=== PATIENT | female | born 1955 | race African-American/Black ===

== ENCOUNTER 2017-06-22 01:48 | Inpatient (IN) | payer MEDICAID, SELFPAY ==
[2017-06-22] VITALS (27 sets, daily range): BP systolic 117–180; BP diastolic 67–100; PULSE 55–118; RESP 16–24; TEMP 36.5–37.7; O2SAT 91–99; BMI 30.7; BMI 27.1
--- NOTE | 2017-06-22 | IR_ITS ---
CARDIAC CATHETERIZATION DATE OF CATHETERIZATION:06/22/2017 12:22 PM PROCEDURES: 1. Left heart catheterization 2. Left ventriculogram 3. Selective coronary angiographic INDICATION FOR TEST: 1. Admission to the hospital for acute coronary syndrome 2. Risk factors for coronary artery disease Informed consent was obtained prior to the procedure. COMPLICATIONS: None ESTIMATED BLOOD LOSS: Less than 10 ml. TECHNIQUE: One percent lidocaine used to anesthetize the right anterior aspect of the wrist. The right radial artery was accessed via the Seldinger technique. A 6 Urdu sheath was placed in the right radial artery. 2.5 mg of verapamil, 800 mcg of nitroglycerin and 5000 U Heparin were given through the arterial sheath. The trap catheter was also used to perform left heart catheterization and left ventriculography. At the end of the procedure the patient was transferred to the post-op holding area in stable condition for arterial sheath removal. ANGIOGRAPHIC RESULTS: 1. The left main artery has a mid vessel 10% stenosis 2. The left anterior descending artery has an ostial 20-30% stenosis and has a mid vessel 30-40% stenosis. The first diagonal artery is a medium-size vessel and has proximal 50% stenoses 3. The circumflex artery gives rise to a ramus intermedius which has proximal 20% mid vessel 20% stenoses this is a large vessel. The remaining circumflex artery has proximal 20% stenoses with a 50-60% stenosis and a terminal 2 mm obtuse marginal artery 4. The right coronary artery is nondominant highly tortuous and has proximal 30% stenoses and mid vessel 40 and 50% stenoses along very tortuous corkscrew areas 5. The TRAN ventriculogram reveals slightly hyperdynamic at 70 mmHg 6. The left ventricular end-diastolic pressure moderate to severely elevated at 30 mmHg IMPRESSION: 1. Moderate nonflow limiting coronary artery disease as described above with hypertensive tortuous vessels accompanied by hyperdynamic ejection fraction and moderate to severely elevated LVEDP all consistent with moderate to severe hypertensive heart disease PLAN: 1. Medical management 2. Risk factor modification 3. Verapamil or diltiazem combined with a beta rima as well as diuretics in order to decrease EDP 4. Patient's symptoms are stemming almost entirely from hypertensive heart disease
--- NOTE | 2017-06-22 02:13 | HMH.EDSEIZ ---
ED Disposition Clinical Impression: Elevated troponin Epileptic seizure Qualifiers: Epilepsy type: unspecified Intractability: not intractable Status epilepticus: without status epilepticus Qualified Code(s): G40.909 - Epilepsy, unspecified, not intractable, without status epilepticus CAP (community acquired pneumonia) Qualifiers: Laterality: unspecified laterality Qualified Code(s): J18.9 - Pneumonia, unspecified organism Disposition: Admitted as Observation Condition on Discharge: Good Referrals: Magdaleno Cloud [Primary Care Provider] - - Critical Care Critical Care Time: No Attestation: On , the high probability of a clinically significant, sudden or life threatening deterioration of the following system(s) required my full and direct attention, intervention and personal management. The time I documented below is in addition to time spent performing reported procedures but includes the following listed in this critical care notation. Medical Decision Making Vital Signs: 06/22/17 01:50 06/22/17 03:30 06/22/17 03:32 Temperature 97.7 F Temperature Source Rectal Pulse Rate [Right Brachial] 118 H 91 H Respiratory Rate 24 16 Blood Pressure [Right Arm] 164/82 180/100 Blood Pressure Mean [Right Arm] 109 126 Blood Pressure Source [Right Arm] Automatic Cuff Automatic Cuff Blood Pressure Position [Right Arm] Supine Supine 02 Sat by Pulse Oximetry 92 L 97 98 Oxygen Delivery Method Non-Rebreather Nasal Cannula Nasal Cannula Oxygen Flow Rate (LPM) 4 06/22/17 03:51 06/22/17 04:16 06/22/17 04:30 Temperature Temperature Source Pulse Rate [Right Brachial] 91 H 92 H 98 H Respiratory Rate 20 16 16 Blood Pressure [Right Arm] 179/97 166/100 156/85 Blood Pressure Mean [Right Arm] 124 122 108 Blood Pressure Source [Right Arm] Automatic Cuff Automatic Cuff Automatic Cuff Blood Pressure Position [Right Arm] Supine Supine Supine 02 Sat by Pulse Oximetry 99 96 97 Oxygen Delivery Method Non-Rebreather Nasal Cannula Room Air Oxygen Flow Rate (LPM) 4 06/22/17 04:36 Temperature Temperature Source Pulse Rate [Right Brachial] 93 H Respiratory Rate 18 Blood Pressure [Right Arm] 156/85 Blood Pressure Mean [Right Arm] 108 Blood Pressure Source [Right Arm] Automatic Cuff Blood Pressure Position [Right Arm] Supine 02 Sat by Pulse Oximetry 97 Oxygen Delivery Method Nasal Cannula Oxygen Flow Rate (LPM) 3 - Lab Data Lab Results 06/22/17 02:19: Urine Opiates Screen Negative, Ur Barbituates Screen Negative, Ur Phencyclidine Scrn Negative, Ur Amphetamines Screen Negative, U Methamphetamines Scrn Negative, U Benzodiazepines Scrn Positive H, Urine Cocaine Screen Negative, U Marijuana (THC) Screen Negative 06/22/17 02:19: Urine Color Yellow, Urine Appearance Clear, Urine pH 6.0, Ur Specific [place] 1.025, Urine Protein 1+, Urine Glucose (UA) 2+, Urine Ketones Negative, Urine Blood Trace, Urine Nitrate Negative, Urine Bilirubin Negative, Urine Urobilinogen 0.2, Ur Leukocyte Esterase Negative, Urine WBC 3-5, Urine Bacteria Trace 06/22/17 03:00: WBC 8.1, RBC 4.96, Hgb 13.1, Hct 42.4, MCV 85.5, MCH 26.4 L, MCHC 30.9 L, RDW 14.0, Plt Count 127 L, MPV 8.4, Neut % (Auto) 75.5, Lymph % (Auto) 14.8, [place] % (Auto) 8.1, Eos % (Auto) 1.4, Baso % (Auto) 0.2, Neut # (Auto) 6.1, Lymph # (Auto) 1.2, [place] # (Auto) 0.7, Eos # (Auto) 0.1, Baso # (Auto) 0.0 06/22/17 03:00: Sodium 142, Potassium 3.7, Chloride 104, Carbon Dioxide 30, Anion Gap 11.7, BUN 18, Creatinine 1.08 H, Estimated Creat Clear 72, Estimated GFR 51 L, Est GFR ( Amer) 62, Glucose 152 H, Calcium 8.5, Total Bilirubin 0.1 L, AST 18, ALT 24, Alkaline Phosphatase 114, Total Creatine Kinase 136, CK-MB (CK-2) 1.8, CK-MB (CK-2) Rel Index 1.3, Troponin I 0.15 H, Total Protein 7.2, Albumin 3.6, Globulin 3.6 H, Albumin/Globulin Ratio 1.0 L, Plasma/Serum Alcohol 0 06/22/17 04:42: Troponin I 0.50 H Result diagrams: 06/22/17 03:00 06/22/17 03:00 Orders (Tests/Meds): ED
--- NOTE | 2017-06-22 02:17 | CT_ITS ---
CT head/brain wo con HISTORY: Seizure, prior surgery ITS.REASON: sz ORDERING PHYSICIAN: Bharat Perez MD PATIENT AGE: 64 years COMPARISON: None TECHNIQUE: Axial images obtained without contrast. Brain and bone windows reviewed. FINDINGS: No midline shift, mass effect, intracranial hemorrhage, hydrocephalus, or extra-axial fluid collection is evident. 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 Encephalomalacia changes are present in the left frontal lobe and right occipital lobe as well as the left aspect of the cerebellum. There is mild periventricular ischemic gliotic change No mastoid effusion. No sinus air-fluid levels.. IMPRESSION: 1. No acute intracranial findings. 2. Postsurgical changes with areas of encephalomalacia with ischemic gliotic change.
--- NOTE | 2017-06-22 02:18 | XR_ITS ---
XR chest AP HISTORY: ITS.REASON: cough ORDERING PHYSICIAN: Bharat Perez MD PATIENT AGE: 64 years COMPARISON: None available FINDINGS: Study is limited technically due to underpenetration. There is increased density in both upper lobes consistent with pneumonia, the appearance appears to be may be accentuated by the technique. Recommend repeat exam when patient can tolerate. There is normal heart size. IMPRESSION: Limited exam with bilateral pneumonia
--- NOTE | 2017-06-22 02:19 | ED_ITS ---
ED Disposition Clinical Impression: Elevated troponin Epileptic seizure Qualifiers: Epilepsy type: unspecified Intractability: not intractable Status epilepticus: without status epilepticus Qualified Code(s): G40.909 - Epilepsy, unspecified, not intractable, without status epilepticus CAP (community acquired pneumonia) Qualifiers: Laterality: unspecified laterality Qualified Code(s): J18.9 - Pneumonia, unspecified organism Disposition: Admitted as Observation Condition on Discharge: Good Referrals: Magdaleno Cloud [Primary Care Provider] - - Critical Care Critical Care Time: No Attestation: On , the high probability of a clinically significant, sudden or life threatening deterioration of the following system(s) required my full and direct attention, intervention and personal management. The time I documented below is in addition to time spent performing reported procedures but includes the following listed in this critical care notation. Medical Decision Making Vital Signs: 06/22/17 01:50 06/22/17 03:30 06/22/17 03:32 Temperature 97.7 F Temperature Source Rectal Pulse Rate [Right Brachial] 118 H 91 H Respiratory Rate 24 16 Blood Pressure [Right Arm] 164/82 180/100 Blood Pressure Mean [Right Arm] 109 126 Blood Pressure Source [Right Arm] Automatic Cuff Automatic Cuff Blood Pressure Position [Right Arm] Supine Supine 02 Sat by Pulse Oximetry 92 L 97 98 Oxygen Delivery Method Non-Rebreather Nasal Cannula Nasal Cannula Oxygen Flow Rate (LPM) 4 06/22/17 03:51 06/22/17 04:16 06/22/17 04:30 Temperature Temperature Source Pulse Rate [Right Brachial] 91 H 92 H 98 H Respiratory Rate 20 16 16 Blood Pressure [Right Arm] 179/97 166/100 156/85 Blood Pressure Mean [Right Arm] 124 122 108 Blood Pressure Source [Right Arm] Automatic Cuff Automatic Cuff Automatic Cuff Blood Pressure Position [Right Arm] Supine Supine Supine 02 Sat by Pulse Oximetry 99 96 97 Oxygen Delivery Method Non-Rebreather Nasal Cannula Room Air Oxygen Flow Rate (LPM) 4 06/22/17 04:36 Temperature Temperature Source Pulse Rate [Right Brachial] 93 H Respiratory Rate 18 Blood Pressure [Right Arm] 156/85 Blood Pressure Mean [Right Arm] 108 Blood Pressure Source [Right Arm] Automatic Cuff Blood Pressure Position [Right Arm] Supine 02 Sat by Pulse Oximetry 97 Oxygen Delivery Method Nasal Cannula Oxygen Flow Rate (LPM) 3 - Lab Data Lab Results 06/22/17 02:19: Urine Opiates Screen Negative, Ur Barbituates Screen Negative, Ur Phencyclidine Scrn Negative, Ur Amphetamines Screen Negative, U Methamphetamines Scrn Negative, U Benzodiazepines Scrn Positive H, Urine Cocaine Screen Negative, U Marijuana (THC) Screen Negative 06/22/17 02:19: Urine Color Yellow, Urine Appearance Clear, Urine pH 6.0, Ur Specific [place] 1.025, Urine Protein 1+, Urine Glucose (UA) 2+, Urine Ketones Negative, Urine Blood Trace, Urine Nitrate Negative, Urine Bilirubin Negative, Urine Urobilinogen 0.2, Ur Leukocyte Esterase Negative, Urine WBC 3-5, Urine Bacteria Trace 06/22/17 03:00: WBC 8.1, RBC 4.96, Hgb 13.1, Hct 42.4, MCV 85.5, MCH 26.4 L, MCHC 30.9 L, RDW 14.0, Plt Count 127 L, MPV 8.4, Neut % (Auto) 75.5, Lymph % ( Auto) 14.8, [place] % (Auto) 8.1, Eos % (Auto) 1.4, Baso % (Auto) 0.2, Neut # (Auto ) 6
--- NOTE | 2017-06-22 02:43 | PC.NURSE ---
TO RADIOLOGY PER STRETCHER FOR CT HEAD
[2017-06-22 03:19] LABS: Basophils % 0.2 % (0.1-2.0); Eosinophils # 0.1 K/mm3 (0.0-0.4); Eosinophils % 1.4 % (0.1-12.0); Hematocrit 42.4 % (37.0-47.0); Hemoglobin 13.1 g/dL (12.2-16.2); Lymphocytes # 1.2 K/mm3 (0.7-4.5); Lymphocytes % 14.8 K/mm3 (10-50); Mean Corpuscular HGB Conc 30.9 g/dL (31.8-35.4); Mean Corpuscular Hemoglobin 26.4 pg (27.0-31.2); Mean Corpuscular Volume 85.5 fl (81-99); Mean Platelet Volume 8.4 fl (7.4-10.4); Monocytes # 0.7 K/mm3 (0.1-1.0); Monocytes % 8.1 % (1.7-9.3); Neutrophils # 6.1 K/mm3 (1.8-7.8); Neutrophils % 75.5 % (37.0-80.0); Platelet Count 127 K/mm3 (142-424); Red Blood Count 4.96 M/mm3 (4.20-5.40); White Blood Count 8.1 K/mm3 (4.8-10.8)
--- NOTE | 2017-06-22 03:19 | PC.NURSE ---
BACK FROM RADIOLOGY PER STRETCHER
[2017-06-22 03:23] LABS: Microscopic, Urine URINE MICROSCOPIC (MICROSCOPIC)
[2017-06-22 03:40] LABS: Appearance,Urine Clear (Clear); Color,Urine Yellow (Yellow)
[2017-06-22 03:41] LABS: Bilirubin,Urine Negative (Negative); Blood, Urine Trace (Negative); Glucose,Urine (UA) 2+ (Negative); Ketones,Urine Negative (Negative); Leukocyte Esterase,Urine Negative (Negative); Nitrate,Urine Negative (Negative); Protein,Urine 1+ (Negative); Specific Gravity, Urine 1.025 (1.005-1.030); Urobilinogen,Urine 0.2 EU/dl (0.2)
[2017-06-22 03:46] LABS: Amphetamine/Metha Screen,Urine Negative ng/mL (<1000); Barbiturates Screen,Urine Negative ng/mL (<200); Benzodiazepines Screen,Urine Positive ng/mL (200); Cannabinoid Screen,Urine Negative ng/mL (<50); Cocaine Screen,Urine Negative ng/g (<300); Methadone Screen,Urine Negative ng/mL (<300); Opiate Screen,Urine Negative ng/mL (<300); Phencyclidine Screen,Urine Negative ng/mL (<25)
[2017-06-22 03:58] LABS: Alanine Aminotransferase 24 U/L (12-78); Albumin Level 3.6 gm/dL (3.4-5.0); Alkaline Phosphatase 114 U/L (46-116); Anion Gap 11.7 mEq/L (5-15); Aspartate Amino Transferase 18 U/L (15-37); Bilirubin,Total 0.1 mg/dL (0.2-1.0); Blood Urea Nitrogen 18 mg/dL (7-18); CKMB Relative Index 1.3 U/L (0-4.0); Calcium 8.5 mg/dL (8.5-10.1); Carbon Dioxide 30 mmol/L (21.0-32.0); Chloride 104 mmol/L (98-107); Creatine Kinase 136 U/L (26-192); Creatine Kinase MB 1.8 mg/ml (0.0-3.6); Creatinine Clearance Estimated 72 mL/min (0-300); Creatinine,Serum 1.08 mg/dL (0.55-1.02); Estimated Glomerular Filt Rate 51 ml/min (>60); GFR (African American) 62 ML/MIN (>60); Globulin 3.6 gm/dl (1.3-3.2); Glucose 152 mg/dL (74-106); Potassium 3.7 mmoL/L (3.5-5.1); Sodium 142 mmol/L (136-145); Total Protein,Serum 7.2 gm/dL (6.4-8.2); Troponin I 0.15 ng/ml (0.00-0.06)
[2017-06-22 04:01] LABS: Ethyl Alcohol 0 mg/dL (0-99)
[2017-06-22 04:10] LABS: Bacteria,Urine Trace /lpf
--- NOTE | 2017-06-22 05:35 | XR_ITS ---
XR chest 2V HISTORY: ITS.REASON: cough ORDERING PHYSICIAN: Bharat Perez MD PATIENT AGE: 64 years COMPARISON: Prior exam of the same day FINDINGS: The cardiomediastinal silhouette and pulmonary vascularity are within normal limits. There is diffuse faint somewhat reticular opacification of the right upper lobe, left upper lobe, and left lower lobe consistent with bilateral pneumonia. No obvious effusion. No acute bony anomalies. IMPRESSION: Bilateral pneumonia. The overall consolidation appears somewhat improved from the previous exam but is likely related to the improved technique on this exam
--- NOTE | 2017-06-22 05:42 | PC.NURSE ---
TO RADIOLOGY PER W/C FOR REPEAT X RAY 2 VIEW NOW THAT PATIENT IS AWAKE AND ALERT
--- NOTE | 2017-06-22 07:32 | PC.NURSE ---
REPORT GIVEN TO Mukund RIGGS
--- NOTE | 2017-06-22 07:44 | CA_ITS ---
PROCEDURE: 2-D M-mode and color Doppler study INDICATIONS FOR THE TEST: Chest painX COPD Heart Murmur Tobacco Smoking Palpitations Fatigue Syncope Edema Hypertension Diabetes Mellitus Rheumatic Fever SOB WEBSTER Obesity Hyperlipidemia Family History HD Additional History ELEVATED TROPONIN PATIENT INFORMATION HEIGHT: 66 WEIGHT:190 GENDER: Female B/P:110/70 2-D/M-MODE INTERPRETATION: 2-D MEASUREMENTS OBSERVED VALUES IN CMS Right Ventricular Dimension (RVDd) 2.6 Interventricular Septum (Thickness)(IVsd) 1.0 Left Ventricular Internal Dimensions(LVIDd) 4.0 Left Ventricular Posterior Wall (Thickness)(LVPWd) 1.0 Aortic Root 2.7 Aortic Cusp Separation 1.9 Left Atrial Dimensions (LAD) 3.5 2D 1. Left atrium is mildly enlarged, left ventricle is normal size, there is no concentric left ventricular hypertrophy present, visually estimated ejection fraction approximately 55% with no obvious regional wall motion abnormality, endocardial surfaces are poorly visualized. 2. The right atrium and right ventricle are relatively normal size and function. 3. The aortic valve is minimally thickened and fibrosed. 4. The mitral and tricuspid valve leaflets are minimally thickened. 5. The pulmonic valve is poorly visualized. 6. No significant pericardial effusion noted. DOPPLER INTERROGATION: Doppler interrogation of the aortic, mitral and tricuspid valvular presence of moderate mitral and tricuspid regurgitation, tricuspid regurgitant jet velocity is insufficient for accurate assessment of the right ventricular systolic pressure. Mild aortic insufficiency seen. Tissue Doppler is inconclusive. CONCLUSION: 1. Mildly enlarged left atrium, normal left ventricular size, visually estimated ejection fraction 55% with no obvious regional wall motion abnormality, endocardial surfaces are poorly visualized. Diastolic parameters are inconclusive. 2. Mild aortic, moderate mitral and mild tricuspid regurgitation, tricuspid regurgitant jet velocity is insufficient for accurate assessment of the right ventricular systolic pressure. 3. No significant pericardial effusion noted.
--- NOTE | 2017-06-22 08:33 | P.CONPHA_ITS ---
[facility] Pharmacy VTE Monitoring - Patient Demographics Admission date: 06/22/17 Report Date: 06/22/17 Time: 08:32 Allergies/Adverse Reactions: Penicillins Allergy (Mild, Verified 06/22/17 02:10) phenytoin Allergy (Verified 06/22/17 02:11) hydrocodone Adverse Reaction (Verified 06/22/17 02:12) Height: 1.68 m Weight: 86.183 kg Patient Problems: Current Active Problems Epileptic seizure (Acute) CAP (community acquired pneumonia) (Acute) Elevated troponin (Acute) - VTE Risk Labs: VTE Related Lab Results Hgb 13.1 g/dL (12.2-16.2) 06/22/17 03:00 Hct 42.4 % (37.0-47.0) 06/22/17 03:00 Plt Count 127 K/mm3 (142-424) L 06/22/17 03:00 BUN 18 mg/dL (7-18) 06/22/17 03:00 Creatinine 1.08 mg/dL (0.55-1.02) H 06/22/17 03:00 Estimated Creat Clear 72 mL/min (0-300) 06/22/17 03:00 - Prophylaxis VTE Prophylaxis Ordered?: Yes Types of VTE Prophylaxis: TEDS Knee High Location of Applied Device: Bilateral Lower Extremeties - VTE Diagnosis Confirmed Treatment or plan recommended: Continue Current Treatment
[2017-06-22 08:54] LABS: Chol/HDL Ratio 2.6 (1-3.5); Cholesterol 238 mg/dL (140-200); HDL Cholesterol 90 mg/dL (29-89); LDL Cholesterol 138 mg/dL (0-130); Triglycerides 50 mg/dL (30-200); VLDL Cholesterol 10 mg/dL (0-40)
--- NOTE | 2017-06-22 09:29 | HMH.HP ---
*Admission Date: 06/22/17 <ColeEvelyn 06/22/17 09:49> *Chief complaint: seizure <ColeEvelyn 06/22/17 09:49> *History of present illness: Ms Guerrier is a 62 year old female with a history of COPD, anemia, seizure disorder, HTN, alcohol related pancreatitis, GERD, Depression and anxiety, Hyperlipidemia, tobacco disorder, and PAD who presented to [facility] ER after experiencing a lengthy seizure at home when going to the bathroom. Seizure was observed by her partner. EMS administered IV and IM Versed. She did have loss of bladder and bowel control. First thing she remembers is the ER. She denies having any chest discomfort and SOB. She states that she has been cutting back on her Keppra. Last hospitalization was in October of last year at [facility] in [facility] for seizures. Her family MD is Dr. Hughes who she sees q 3 months. She was told at this last hospitalization that she was having mini strokes. This AM she continues to deny CP and SOB. Her only complaint is a headache. She denies fever, cough, ST and RN. She does have chronic sinusitis. Troponin I was elevated with EKG showing poor R wave progression. She was admitted with a cardiology consult. <DouglasEvelyn 06/22/17 10:02> [facility] History Medical History: Reports:: Chronic Obstructive Pulmonary Disease (COPD), Gastroesophageal Reflux Disease, Hyperlipidemia, Hypertension, Peripheral Artery Disease, Seizures, Transient Ischemic Attacks (TIA) Denies:: Cancer, Coronary Artery Disease, Diabetes Mellitus Type 1, Diabetes Mellitus Type 2, MRSA <DouglasEvelyn 06/22/17 09:49> Other Medical History: Reports: Anemia <Evelyn Cole 06/22/17 09:49> Comment: pancreatitis <Evelyn Cole 06/22/17 09:49> Amputation: No <Evelyn Cole 06/22/17 09:49> Fractures: No <Evelyn Cole 06/22/17 09:49> - *Social History Educational Level: Completed High School <Evelyn Cole 06/22/17 09:49> Smoking Status: Current every day smoker <Evelyn Cole 06/22/17 09:49> Tobacco Type: cigarettes <Evelyn Cole 06/22/17 09:49> # Packs/Day (cigarettes): 1 <Evelyn Cole 06/22/17 09:49> Alcohol Intake: former <DouglasEvelyn 06/22/17 09:49> Alcohol Intake Frequency:: other <Evelyn Cole 06/22/17 09:49> Occupational Status: unemployed <ColeEvelyn 06/22/17 09:49> Housing: apartment <DouglasEvelyn 06/22/17 09:49> Household Members: significant other <Evelyn Cole 06/22/17 09:49> - Psychiatric History Expresses thoughts of harming self/others: None <ColeEvelyn 06/22/17 09:49> Suicide Plan Description: No Plan <DouglasEvelyn 06/22/17 09:49> Pschychiatric History:: Reports:: Anxiety, Depression <ColeEvelyn 06/22/17 09:49> *Family Hx:: Diabetes <ColeEvelyn 06/22/17 09:49> Review of Systems - Constitutional Reports headache(s), Denies fever(s) <ColeEvelyn 06/22/17 09:49> - ENT Reports headache(s), Denies ear pain, Denies sore throat <ColeEvelyn 06/22/17 09:49> - *Cardiovascular Denies chest pain, Denies shortness of breath, Denies generalized swelling, Denies leg swelling <ColeEvelyn 06/22/17 09:49> - *Respiratory Denies shortness of breath, Denies coughing up blood <ColeEvelyn 06/22/17 09:49> - *Gastrointestinal Denies abdominal pain, Denies constipation, Denies heartburn, Denies heartburn, Denies vomiting blood, Denies nausea, Denies vomiting <DouglasEvelyn - 06/22/17 09:49> - *Musculoskeletal Denies joint pain, Denies body aches <ColeEvelyn 06/22/17 09:49> Comments: walks without problems <DouglasEvelyn 06/22/17 09:49> - *Neurologic Reports seizure-like activity, Reports headache(s), Reports seizure-like activity, Denies confusion, Denies dizziness, Denies frequent falls, Denies lack of coordination, Denies dizziness <Evelyn Cole - 06/22/17 09:49> Meds Home Medications Medication Instructions Recorded Confirmed Type Albuterol Sulfate [Albuterol 2.5 mg IH Q6RT PRN
--- NOTE | 2017-06-22 09:39 | P.HP_ITS ---
*Admission Date: 06/22/17 <ColeEvelyn 06/22/17 09:49> *Chief complaint: seizure <ColeEvelyn 06/22/17 09:49> *History of present illness: Ms Guerrier is a 62 year old female with a history of COPD, anemia, seizure disorder, HTN, alcohol related pancreatitis, GERD, Depression and anxiety, Hyperlipidemia, tobacco disorder, and PAD who presented to [facility] ER after experiencing a lengthy seizure at home when going to the bathroom. Seizure was observed by her partner. EMS administered IV and IM Versed. She did have loss of bladder and bowel control. First thing she remembers is the ER. She denies having any chest discomfort and SOB. She states that she has been cutting back on her Keppra. Last hospitalization was in October of last year at [facility] in [facility] for seizures. Her family MD is Dr. Hughes who she sees q 3 months. She was told at this last hospitalization that she was having mini strokes. This AM she continues to deny CP and SOB. Her only complaint is a headache. She denies fever, cough, ST and RN. She does have chronic sinusitis. Troponin I was elevated with EKG showing poor R wave progression. She was admitted with a cardiology consult. <DouglasEvelyn 06/22/17 10:02> [facility] History Medical History: Reports:: Chronic Obstructive Pulmonary Disease (COPD), Gastroesophageal Reflux Disease, Hyperlipidemia, Hypertension, Peripheral Artery Disease, Seizures, Transient Ischemic Attacks (TIA) Denies:: Cancer, Coronary Artery Disease, Diabetes Mellitus Type 1, Diabetes Mellitus Type 2, MRSA <DouglasEvelyn 06/22/17 09:49> Other Medical History: Reports: Anemia <Evelyn Cole 06/22/17 09:49> Comment: pancreatitis <Evelyn Cole 06/22/17 09:49> Amputation: No <Evelyn Cole 06/22/17 09:49> Fractures: No <Evelyn Cole 06/22/17 09:49> - *Social History Educational Level: Completed High School <Evelyn Cole 06/22/17 09:49> Smoking Status: Current every day smoker <Evelyn Cole 06/22/17 09:49> Tobacco Type: cigarettes <Evelyn Cole 06/22/17 09:49> # Packs/Day (cigarettes): 1 <Evelyn Cole 06/22/17 09:49> Alcohol Intake: former <ColeEvelyn 06/22/17 09:49> Alcohol Intake Frequency:: other <Evelyn Cole 06/22/17 09:49> Occupational Status: unemployed <ColeEvelyn 06/22/17 09:49> Housing: apartment <ColeEvelyn 06/22/17 09:49> Household Members: significant other <DouglasEvelyn 06/22/17 09:49> - Psychiatric History Expresses thoughts of harming self/others: None <ColeEvelyn 06/22/17 09: 49> Suicide Plan Description: No Plan <ColeEvelyn 06/22/17 09:49> Pschychiatric History:: Reports:: Anxiety, Depression <ColeEvelyn 09:49> *Family Hx:: Diabetes <ColeEvelyn 06/22/17 09:49> Review of Systems - Constitutional Reports headache(s), Denies fever(s) <ColeEvelyn 06/22/17 09:49> - ENT Reports headache(s), Denies ear pain, Denies sore throat <ColeEvelyn 09:49> - *Cardiovascular Denies chest pain, Denies shortness of breath, Denies generalized swelling, Denies leg swelling <DouglasEvelyn 06/22/17 09:49> - *Respiratory Denies shortness of breath, Denies coughing up blood <DouglasEvelyn 09:49> - *Gastrointestinal Denies abdominal pain, Denies constipation, Denies heartburn, Denies heartburn, Denies vomiting blood, Denies nausea, Denies vomiting <DouglasEvelyn 09:49> - *Musculoskeletal Denies joint pain, Denies body aches <ColeEvelyn 06/22/17 09:49> Comments: walks without problems <DouglasEvelyn 06/22/17 09:49> - *Neurologic Reports seizure-like activity,
--- NOTE | 2017-06-22 09:44 | HMH.CARDCON2 ---
History of Present Illness Consult date: 06/22/17 Requesting physician: Allen Gamez Chief complaint: Past out History of present illness: 62-year-old black female with history of hypertension and alcohol-related pancreatitis was admitted after a syncopal episode at home. Patient relates rising from the commode and feeling dizzy and calling for her life partner and then waking up on the floor. She denies any chest pain, palpitations, shortness of breath or chest tightness prior to passing out. She denies straining on the commode. She does relate having a cough recently but does not remember coughing hard enough prior to passing out. Patient has been taking her antiseizure medication but only at half dose due to discontinuation of alcohol 9 months ago. She has had no seizure in the interim. Patient does smoke and is supposed to take medication for hyperlipidemia but does not. Troponin noted to be elevated on admission. EKG is sinus with poor R-wave progression anteriorly. Cardiology consulted for evaluation recommendations. Review of Systems - *Cardiovascular Denies chest pain - *Respiratory Reports cough - *Gastrointestinal Denies abdominal pain - *Neurologic Reports seizure-like activity, Denies dizziness [facility] History Medical History: Reports:: Chronic Obstructive Pulmonary Disease (COPD), Gastroesophageal Reflux Disease, Hyperlipidemia, Hypertension, Peripheral Artery Disease, Seizures, Transient Ischemic Attacks (TIA) Denies:: Cancer, Coronary Artery Disease, Diabetes Mellitus Type 1, Diabetes Mellitus Type 2, MRSA Other Medical History: Reports: Anemia Other Surgeries: No: Pacemaker Amputation: No Fractures: No - *Social History Educational Level: Completed High School Smoking Status: Current every day smoker Tobacco Type: cigarettes # Packs/Day (cigarettes): 1 Alcohol Intake: former Alcohol Intake Frequency:: other Occupational Status: unemployed Housing: apartment Household Members: significant other - Psychiatric History Expresses thoughts of harming self/others: None Suicide Plan Description: No Plan Pschychiatric History:: Reports:: Anxiety, Depression *Family Hx:: Diabetes Meds Home Medications Medication Instructions Recorded Confirmed Type Albuterol Sulfate [Albuterol 2.5 mg IH Q6RT PRN 06/22/17 06/22/17 History 0.083% 2.5mg/3mL neb] Albuterol Sulfate [Albuterol 2.5 mg IH Q4RT 06/22/17 06/22/17 History Sulfate 2.5mg/0.5ml Neb] Amlodipine Besylate [Amlodipine 10 mg PO DAILY 06/22/17 06/22/17 History 10mg Tab] Aspirin [Aspirin 81mg EC Tab] 81 mg PO DAILY 06/22/17 06/22/17 History Atorvastatin Calcium [Atorvastatin 40 mg PO DAILY 06/22/17 06/22/17 History 40mg Tab] Cyanocobalamin (Vitamin B-12) 1,000 mcg PO DAILY 06/22/17 06/22/17 History [B-12] Ferrous Sulfate [Ferrous Sulfate 325 mg PO DAILY 06/22/17 06/22/17 History 325mg Tablet] Folic Acid [Folic Acid 1mg tablet] 1 mg PO DAILY 06/22/17 06/22/17 History Furosemide [Furosemide 20mg Tab] 20 mg PO DAILY 06/22/17 06/22/17 History Hydralazine HCl 50 mg PO Q8 06/22/17 06/22/17 History Ipratropium/Albuterol Sulfate 1 puff IH Q4RT 06/22/17 06/22/17 History [Combivent Respimat Inh] Lipase/Protease/Amylase [Creon Dr 1 each PO TID 06/22/17 06/22/17 History 12,000 Units Capsule] Lisinopril [Lisinopril 40mg Tablet] 40 mg PO DAILY 06/22/17 06/22/17 History Methocarbamol [Methocarbamol 750mg 750 mg PO TID 06/22/17 06/22/17 History Tab] Omeprazole [Omeprazole 20mg 20 mg PO DAILY 06/22/17 06/22/17 History Capsule] Sertraline HCl [Zoloft] 150 mg PO DAILY 06/22/17 06/22/17 History Topiramate [Topamax 25mg tablet] 100 mg PO BID 06/22/17 06/22/17 History cloNIDine HCl [cloNIDine 0.2mg 0.2 mg PO BID 06/22/17 06/22/17 History Tablet] levETIRAcetam [Levetiracetam] 750 mg PO BID 06/22/17 06/22/17 History Allergies Allergy/AdvReac Type Severity Reaction Status Date / Time Penicillins Allergy Mi
--- NOTE | 2017-06-22 09:47 | P.CONS_ITS ---
History of Present Illness Consult date: 06/22/17 Requesting physician: Allen Gamez Chief complaint: Past out History of present illness: 62-year-old black female with history of hypertension and alcohol-related pancreatitis was admitted after a syncopal episode at home. Patient relates rising from the commode and feeling dizzy and calling for her life partner and then waking up on the floor. She denies any chest pain, palpitations, shortness of breath or chest tightness prior to passing out. She denies straining on the commode. She does relate having a cough recently but does not remember coughing hard enough prior to passing out. Patient has been taking her antiseizure medication but only at half dose due to discontinuation of alcohol 9 months ago. She has had no seizure in the interim. Patient does smoke and is supposed to take medication for hyperlipidemia but does not. Troponin noted to be elevated on admission. EKG is sinus with poor R-wave progression anteriorly. Cardiology consulted for evaluation recommendations. Review of Systems - *Cardiovascular Denies chest pain - *Respiratory Reports cough - *Gastrointestinal Denies abdominal pain - *Neurologic Reports seizure-like activity, Denies dizziness [facility] History Medical History: Reports:: Chronic Obstructive Pulmonary Disease (COPD), Gastroesophageal Reflux Disease, Hyperlipidemia, Hypertension, Peripheral Artery Disease, Seizures, Transient Ischemic Attacks (TIA) Denies:: Cancer, Coronary Artery Disease, Diabetes Mellitus Type 1, Diabetes Mellitus Type 2, MRSA Other Medical History: Reports: Anemia Other Surgeries: No: Pacemaker Amputation: No Fractures: No - *Social History Educational Level: Completed High School Smoking Status: Current every day smoker Tobacco Type: cigarettes # Packs/Day (cigarettes): 1 Alcohol Intake: former Alcohol Intake Frequency:: other Occupational Status: unemployed Housing: apartment Household Members: significant other - Psychiatric History Expresses thoughts of harming self/others: None Suicide Plan Description: No Plan Pschychiatric History:: Reports:: Anxiety, Depression *Family Hx:: Diabetes Meds Home Medications Medication Instructions Recorded Confirmed Type Albuterol Sulfate [Albuterol 2.5 mg IH Q6RT PRN 06/22/17 06/22/17 History 0.083% 2.5mg/3mL neb] Albuterol Sulfate [Albuterol 2.5 mg IH Q4RT 06/22/17 06/22/17 History Sulfate 2.5mg/0.5ml Neb] Amlodipine Besylate [Amlodipine 10 mg PO DAILY 06/22/17 06/22/17 History 10mg Tab] Aspirin [Aspirin 81mg EC Tab] 81 mg PO DAILY 06/22/17 06/22/17 History Atorvastatin Calcium [Atorvastatin 40 mg PO DAILY 06/22/17 06/22/17 History 40mg Tab] Cyanocobalamin (Vitamin B-12) 1,000 mcg PO DAILY 06/22/17 06/22/17 History [B-12] Ferrous Sulfate [Ferrous Sulfate 325 mg PO DAILY 06/22/17 06/22/17 History 325mg Tablet] Folic Acid [Folic Acid 1mg tablet] 1 mg PO DAILY 06/22/17 06/22/17 History Furosemide [Furosemide 20mg Tab] 20 mg PO DAILY 06/22/17 06/22/17 History Hydralazine HCl 50 mg PO Q8 06/22/17 06/22/17 History Ipratropium/Albuterol Sulfate 1 puff IH Q4RT 06/22/17 06/22/17 History [Combivent Respimat Inh] Lipase/Protease/Amylase [Saumya Romero 1 each PO TID 06/22/17 06/22/17 History 12,000 Units Capsule] Lisinopril [Lisinopril 40mg Tablet] 40 mg PO DAILY 06/22/17 06/22/17 History Methocarbamol [Methocarbamol 750mg 750 mg PO TID 06/22/17
--- NOTE | 2017-06-22 18:06 | PC.NURSE ---
Patient resting in bed. Traclet removed at appropriate time. No sign or symptoms of bleeding or hematoma at incision site on right wrist from heart cath this am. Patient educated on incision care and post cath instructions. No sign or symptoms of distress noted. No complaint voiced.
--- NOTE | 2017-06-22 19:15 | PC.NURSE ---
REPORT RECEIVED FROM [email or web address].SONIYA
--- NOTE | 2017-06-22 20:30 | PC.NURSE ---
PT HAD CARDIAC CATH TODAY, RT RADIAL. DRESSING ON SITE. C/D/I, DID NOT REMOVE
[2017-06-23] VITALS (12 sets, daily range): BP systolic 136–168; BP diastolic 63–72; PULSE 56–71; RESP 16–22; TEMP 36.6–37.1; O2SAT 92–96; BMI 30.5
--- NOTE | 2017-06-23 05:32 | PC.NURSE ---
PT SLEPT MOST OF SHIFT. C/O [place] AT BEGINNING OF SHIFT, BUT NO OTHER COMPLAINTS OR PAIN OR DISCOMFORT. IV SECURE AND PATENT. BREATH SOUNDS CLEAR, RESPIRATIONS EVEN AND UNLABORED, ON 2LNC. STILL NEED SPUTUM SPECIMEN, PT HAS YET TO BE ABLE TO PROVIDE ONE. NO COUGHING NOTED. SITE RT RADIAL 2X2 C/D/I. SEIZURE PADS INTACT. NO S/S OF SEIZURES NOTED. PT STABLE. WILL CONTINUE TO MONITOR. REPORT TO BE GIVEN TO ONCOMING NURSE.
--- NOTE | 2017-06-23 07:26 | PC.NURSE ---
REPORT GIVEN TO Vivian RIGGS
--- NOTE | 2017-06-23 08:18 | HMH.ACPN ---
Internal Medicine - PN: Subj *Date: 06/23/17 *Time: 08:47 Interval history: Pt feels about the same today. Denies any pain. Still coughing. Denies SOA. Ate most of her breakfast and slept well. Exam Vital signs and Labs for Last 24 Hours: Temp Pulse Resp BP Pulse Ox 97.8 F 58 L 18 137/63 94 L 06/23/17 08:10 06/23/17 08:10 06/23/17 08:10 06/23/17 08:10 06/23/17 08:10 Laboratory Results - last 24 hr 06/22/17 08:19: Triglycerides 50, Cholesterol 238 H, LDL Cholesterol 138 H, VLDL Cholesterol 10, HDL Cholesterol 90 H, Cholesterol/HDL Ratio 2.6 I & O for Last 24 hours: Intake & Output 06/20/17 06/21/17 06/22/17 06/23/17 11:59 11:59 11:59 11:59 Intake Total 1065 / 1065 Output Total 1200 / 1200 Balance -135 / -135 Weight 190 lb Microbiology Reports for the Last 24 Hours: Microbiology 06/22/17 06:50 Blood Blood Culture - Preliminary NO GROWTH AFTER 24 HOURS 06/22/17 06:50 Blood Blood Culture - Preliminary NO GROWTH AFTER 24 HOURS Radiology Reports for the Last 24 Hours: CXR - bilateral pneumonia Echo 1. Mildly enlarged left atrium, normal left ventricular size, visually estimated ejection fraction 55% with no obvious regional wall motion abnormality, endocardial surfaces are poorly visualized. Diastolic parameters are inconclusive. 2. Mild aortic, moderate mitral and mild tricuspid regurgitation, tricuspid regurgitant jet velocity is insufficient for accurate assessment of the right ventricular systolic pressure. 3. No significant pericardial effusion noted. Cardiac Cath Moderate nonflow limiting coronary artery disease as described above with hypertensive tortuous vessels accompanied by hyperdynamic ejection fraction and moderate to severely elevated LVEDP all consistent with moderate to severe hypertensive heart disease - Constitutional no acute distress - *Routine Respiratory Exam Present: rales (bilaterally), rhonchi - *Routine Cardiovascular Exam Present: RRR - *Routine Abdominal Exam Present: soft, normoactive bowel sounds. Absent: tenderness - *Routine Extremities Exam Absent: edema Assessment and Plan (1) CAP (community acquired pneumonia) Current visit: Yes Status: Acute Qualifiers: Laterality: unspecified laterality Qualified Code(s): J18.9 - Pneumonia, unspecified organism Category: Medical Code(s): J18.9 - Pneumonia, unspecified organism (2) Elevated troponin Current visit: Yes Status: Acute Category: Medical Code(s): R74.8 - Abnormal levels of other serum enzymes (3) Epileptic seizure Current visit: Yes Status: Acute Qualifiers: Epilepsy type: unspecified Intractability: not intractable Status epilepticus: without status epilepticus Qualified Code(s): G40.909 - Epilepsy, unspecified, not intractable, without status epilepticus Category: Medical Code(s): G40.909 - Epilepsy, unspecified, not intractable, without status epilepticus (4) NSTEMI (non-ST elevated myocardial infarction) Current visit: Yes Status: Acute Category: Medical Code(s): I21.4 - Non-ST elevation (NSTEMI) myocardial infarction (5) Syncope Current visit: Yes Status: Acute Category: Medical Code(s): R55 - Syncope and collapse (6) Anemia Current visit: Yes Status: Chronic Category: Medical Code(s): D64.9 - Anemia, unspecified (7) COPD (chronic obstructive pulmonary disease) Current visit: Yes Status: Chronic Category: Medical Code(s): J44.9 - Chronic obstructive pulmonary disease, unspecified (8) Depression Current visit: Yes Status: Chronic Category: Medical Code(s): F32.9 - Major depressive disorder, single episode, unspecified - Assessment and plan all Dx Assessment and Plan for all problems:: Cardiology recommends medical management. Will continue abx for her pneumonia and await a sputum culture.
--- NOTE | 2017-06-23 08:22 | P.PN_ITS ---
Internal Medicine - PN: Subj *Date: 06/23/17 *Time: 08:47 Interval history: Pt feels about the same today. Denies any pain. Still coughing. Denies SOA. Ate most of her breakfast and slept well. Exam Vital signs and Labs for Last 24 Hours: Temp Pulse Resp BP Pulse Ox 97.8 F 58 L 18 137/63 94 L 06/23/17 08:10 06/23/17 08:10 06/23/17 08:10 06/23/17 08:10 06/23/17 08:10 Laboratory Results - last 24 hr 06/22/17 08:19: Triglycerides 50, Cholesterol 238 H, LDL Cholesterol 138 H, VLDL Cholesterol 10, HDL Cholesterol 90 H, Cholesterol/HDL Ratio 2.6 I & O for Last 24 hours: Intake & Output 06/20/17 06/21/17 06/22/17 06/23/17 11:59 11:59 11:59 11:59 Intake Total 1065 / 1065 Output Total 1200 / 1200 Balance -135 / -135 Weight 190 lb Microbiology Reports for the Last 24 Hours: Microbiology 06/22/17 06:50 Blood Blood Culture - Preliminary NO GROWTH AFTER 24 HOURS 06/22/17 06:50 Blood Blood Culture - Preliminary NO GROWTH AFTER 24 HOURS Radiology Reports for the Last 24 Hours: CXR - bilateral pneumonia Echo 1. Mildly enlarged left atrium, normal left ventricular size, visually estimated ejection fraction 55% with no obvious regional wall motion abnormality , endocardial surfaces are poorly visualized. Diastolic parameters are inconclusive. 2. Mild aortic, moderate mitral and mild tricuspid regurgitation, tricuspid regurgitant jet velocity is insufficient for accurate assessment of the right ventricular systolic pressure. 3. No significant pericardial effusion noted. Cardiac Cath Moderate nonflow limiting coronary artery disease as described above with hypertensive tortuous vessels accompanied by hyperdynamic ejection fraction and moderate to severely elevated LVEDP all consistent with moderate to severe hypertensive heart disease - Constitutional no acute distress - *Routine Respiratory Exam Present: rales (bilaterally), rhonchi - *Routine Cardiovascular Exam Present: RRR - *Routine Abdominal Exam Present: soft, normoactive bowel sounds. Absent: tenderness - *Routine Extremities Exam Absent: edema Assessment and Plan (1) CAP (community acquired pneumonia) Current visit: Yes Status: Acute Qualifiers: Laterality: unspecified laterality Qualified Code(s): J18.9 - Pneumonia, unspecified organism Category: Medical Code(s): J18.9 - Pneumonia, unspecified organism (2) Elevated troponin Current visit: Yes Status: Acute Category: Medical Code(s): R74.8 - Abnormal levels of other serum enzymes (3) Epileptic seizure Current visit: Yes Status: Acute Qualifiers: Epilepsy type: unspecified Intractability: not intractable Status epilepticus: without status epilepticus Qualified Code(s): G40.909 - Epilepsy , unspecified, not intractable, without status epilepticus Category: Medical Code(s): G40.909 - Epilepsy, unspecified, not intractable, without status epilepticus (4) NSTEMI (non-ST elevated myocardial infarction) Current visit: Yes Status: Acute Category: Medical Code(s): I21.4 - Non- ST elevation (NSTEMI) myocardial infarction (5) Syncope Current visit: Yes Status: Acute Category: Medical Code(s): R55 - Syncope and collapse (6) Anemia Current visit: Yes Status: Chronic Category: Medical Code(s)
[2017-06-24 00:36] VITALS: BP 158/70; PULSE 64; RESP 16; TEMP 36.6; O2SAT 97
--- NOTE | 2017-06-24 02:41 | PC.NURSE ---
no changes noted from previous assessment, pt c/o pain in the right leg that is a chronic pain she deals with, she states the pain is tolerable for her, vss, pt is on 2L NC as needed to keep O2 sats above 90 (currently on room air), breath sounds are clear throughout, bowel sounds are active, pt is ambulating well in room to and from restroom, no acute distress noted, call light in reach, seizure precautions in place, will continue to monitor.
[2017-06-24 05:44] VITALS: BP 167/61; PULSE 61; RESP 18; TEMP 36.7; O2SAT 96
[2017-06-24 06:56] VITALS: PULSE 53; O2SAT 90
[2017-06-24 07:11] LABS: Anion Gap 13.8 mEq/L (5-15); Blood Urea Nitrogen 15 mg/dL (7-18); Carbon Dioxide 24 mmol/L (21.0-32.0); Chloride 107 mmol/L (98-107); Creatinine Clearance Estimated 79 mL/min (0-300); Creatinine,Serum 0.98 mg/dL (0.55-1.02); Estimated Glomerular Filt Rate 58 ml/min (>60); GFR (African American) 70 ML/MIN (>60); Glucose 123 mg/dL (74-106); Potassium 3.8 mmoL/L (3.5-5.1); Sodium 141 mmol/L (136-145)
[2017-06-24 08:00] VITALS: BP 134/55; PULSE 62; RESP 18; TEMP 36.8; O2SAT 96
[2017-06-24 08:15] LABS: Basophils % 0.3 % (0.1-2.0); Eosinophils # 0.1 K/mm3 (0.0-0.4); Eosinophils % 1.5 % (0.1-12.0); Hematocrit 37.8 % (37.0-47.0); Hemoglobin 11.8 g/dL (12.2-16.2); Lymphocytes # 1.8 K/mm3 (0.7-4.5); Lymphocytes % 38.9 K/mm3 (10-50); Mean Corpuscular HGB Conc 31.3 g/dL (31.8-35.4); Mean Corpuscular Hemoglobin 26.7 pg (27.0-31.2); Mean Corpuscular Volume 85.4 fl (81-99); Mean Platelet Volume 9.2 fl (7.4-10.4); Monocytes # 0.3 K/mm3 (0.1-1.0); Monocytes % 5.3 % (1.7-9.3); Neutrophils # 2.5 K/mm3 (1.8-7.8); Platelet Count 122 K/mm3 (142-424); Red Blood Count 4.42 M/mm3 (4.20-5.40); Red Cell Distribution Width 14.1 % (11.5-17.5); White Blood Count 4.7 K/mm3 (4.8-10.8)
--- NOTE | 2017-06-24 08:30 | HMH.ACPN2 ---
<Sheila Ríos - Last Filed: 06/24/17 08:30> Internal Medicine - PN: Subj *Date: 06/24/17 *Time: 08:30 Interval history: She is feeling much better today. She has been off of oxygen since last night. She denies any pain and is anxious to go home. Exam Vital signs and Labs for Last 24 Hours: Temp Pulse Resp BP Pulse Ox 98.0 F 53 L 18 167/61 90 L 06/24/17 05:44 06/24/17 06:56 06/24/17 05:44 06/24/17 05:44 06/24/17 06:56 Laboratory Results - last 24 hr 06/24/17 06:30: WBC 4.7 L D, RBC 4.42, Hgb 11.8 L, Hct 37.8, MCV 85.4, MCH 26.7 L, MCHC 31.3 L, RDW 14.1, Plt Count 122 L, MPV 9.2, Neut % (Auto) 54.0, Lymph % (Auto) 38.9, [place] % (Auto) 5.3, Eos % (Auto) 1.5, Baso % (Auto) 0.3, Neut # (Auto) 2.5, Lymph # (Auto) 1.8, [place] # (Auto) 0.3, Eos # (Auto) 0.1, Baso # (Auto) 0.0 06/24/17 06:30: Sodium 141, Potassium 3.8, Chloride 107, Carbon Dioxide 24, Anion Gap 13.8, BUN 15, Creatinine 0.98, Estimated Creat Clear 79, Estimated GFR 58 L, Est GFR ( Amer) 70, Glucose 123 H I & O for Last 24 hours: Intake & Output 06/21/17 06/22/17 06/23/17 06/24/17 11:59 11:59 11:59 11:59 Intake Total 1065 / 1065 1800 / 1800 Output Total 1200 / 1200 Balance -135 / -135 1800 / 1800 Weight 190 lb 189 lb 15.91 oz Microbiology Reports for the Last 24 Hours: Microbiology 06/22/17 06:50 Blood Blood Culture - Preliminary NO GROWTH AFTER 48 HOURS 06/22/17 06:50 Blood Blood Culture - Preliminary NO GROWTH AFTER 48 HOURS 06/23/17 15:46 Sputum - Expectorated Sputum Gram Stain - Final - Constitutional no acute distress - *Routine Respiratory Exam Present: wheezes (improved but still present) - *Routine Cardiovascular Exam Present: RRR - *Routine Abdominal Exam Present: soft, normoactive bowel sounds. Absent: tenderness - *Routine Extremities Exam Absent: edema Assessment and Plan (1) CAP (community acquired pneumonia) Current visit: Yes Status: Acute Qualifiers: Laterality: unspecified laterality Qualified Code(s): J18.9 - Pneumonia, unspecified organism Category: Medical Code(s): J18.9 - Pneumonia, unspecified organism (2) Elevated troponin Current visit: Yes Status: Acute Category: Medical Code(s): R74.8 - Abnormal levels of other serum enzymes (3) Epileptic seizure Current visit: Yes Status: Acute Qualifiers: Epilepsy type: unspecified Intractability: not intractable Status epilepticus: without status epilepticus Qualified Code(s): G40.909 - Epilepsy, unspecified, not intractable, without status epilepticus Category: Medical Code(s): G40.909 - Epilepsy, unspecified, not intractable, without status epilepticus (4) NSTEMI (non-ST elevated myocardial infarction) Current visit: Yes Status: Acute Category: Medical Code(s): I21.4 - Non-ST elevation (NSTEMI) myocardial infarction (5) Syncope Current visit: Yes Status: Acute Category: Medical Code(s): R55 - Syncope and collapse (6) Anemia Current visit: Yes Status: Chronic Category: Medical Code(s): D64.9 - Anemia, unspecified (7) COPD (chronic obstructive pulmonary disease) Current visit: Yes Status: Chronic Category: Medical Code(s): J44.9 - Chronic obstructive pulmonary disease, unspecified (8) Depression Current visit: Yes Status: Chronic Category: Medical Code(s): F32.9 - Major depressive disorder, single episode, unspecified - Assessment and plan all Dx Assessment and Plan for all problems:: Possible discharge home today on abx. Will discuss with Dr. Gamez. <Allen Gamez - Last Filed: 06/24/17 08:52> Internal Medicine - PN: Subj *Date: 06/24/17 *Time: 08:51 Exam Vital signs and Labs for Last 24 Hours: Temp Pulse Resp BP Pulse Ox 98.3 F 62 18 134/55 96 06/24/17 08:00 06/24/17 08:00 06/24/17 08:00 06/24/17 08:00 06/24/17 08:00 Laborator
--- NOTE | 2017-06-24 08:55 | HMH.DCSUM ---
General - General Admission date: 06/22/17 <Allen Gamez - 06/24/17 09:04> Discharge date: 06/24/17 <Sheila Ríos - 06/25/17 16:19> HPI HPI: Ms Guerrier is a 62 year old female with a history of COPD, anemia, seizure disorder, HTN, alcohol related pancreatitis, GERD, Depression and anxiety, Hyperlipidemia, tobacco disorder, and PAD who presented to [facility] ER after experiencing a lengthy seizure at home when going to the bathroom. Seizure was observed by her partner. EMS administered IV and IM Versed. She did have loss of bladder and bowel control. First thing she remembers is the ER. She denies having any chest discomfort and SOB. She states that she has been cutting back on her Keppra. Last hospitalization was in October of last year at [facility] in [facility] for seizures. Her family MD is Dr. Hughes who she sees q 3 months. She was told at this last hospitalization that she was having mini strokes. This AM she continues to deny CP and SOB. Her only complaint is a headache. She denies fever, cough, ST and RN. She does have chronic sinusitis. Troponin I was elevated with EKG showing poor R wave progression. She was admitted with a cardiology consult. <Allen Gamez - 06/24/17 09:04> Objective Vital signs: Temp Pulse Resp BP Pulse Ox 98.3 F 62 18 134/55 96 06/24/17 08:00 06/24/17 08:00 06/24/17 08:00 06/24/17 08:00 06/24/17 08:00 <Sheila Ríos - 06/25/17 16:19> Temp Pulse Resp BP Pulse Ox 98.3 F 62 18 134/55 96 06/24/17 08:00 06/24/17 08:00 06/24/17 08:00 06/24/17 08:00 06/24/17 08:00 <Allen Gamez - 06/24/17 09:04> Narrative: - Constitutional no acute distress - *Routine HEENT Exam Head: Present: normocephalic, atraumatic Eye: Present: EOMI, PERRL, normal accommodation. Absent: conjunctival icterus, scleral injection ENT: Present: mucous membranes moist - *Routine Neck Exam Present: supple, full ROM. Absent: carotid bruit, lymphadenopathy, thyromegaly - *Routine Respiratory Exam Absent: respiratory distress Comments: bilateral rhonchi - *Routine Cardiovascular Exam Present: RRR - *Routine Abdominal Exam Present: soft, normoactive bowel sounds. Absent: tenderness, distended, guarding Comments: has rao catheter - *Routine Exam Comments: has rao catheter - *Routine Extremities Exam Present: full ROM. Absent: edema, calf tenderness - *Routine Neurological Exam Present: alert, oriented X3 <Sheila Ríos - 06/25/17 16:19> Hospital Course Hospital Course: Patient was seen by cardiology and a heart cath was ordered. Her CXR showed bilateral pneumonia and she was started on Duonebs for her pneumonia along with Levaquin. She had an echo showing a mildly enlarged left atrium, normal left ventricular size, a visually estimated ejection fraction 55% with no obvious regional wall motion abnormality, and mild aortic, moderate mitral and mild tricuspid regurgitation. Her heart cath showed moderate nonflow limiting coronary artery disease with hypertensive tortuous vessels accompanied by a hyperdynamic ejection fraction and moderate to severely elevated LVEDP all consistent with moderate to severe hypertensive heart disease. Cardiology recommended medical management. She was able to be weaned off of her oxygen, denied any pain, and was anxious to go home. She was stable to be discharged on Levaquin. Her Amlodipine was stopped and her Verapamil that was started during this admission was continued. She will f/u with her primary MD in the next week. <Sheila Ríos - 06/25/17 16:19> Results Labs on day of discharge: Preliminary micro results at discharge 06/22/17 06:50 Blood Culture - Preliminary Blood NO GROWTH AFTER 72 HOURS 06/22/17 06:50 Blood Culture - Preliminary Blood NO GROWTH AFTER 72 HOURS <Sheila Ríos - 06/25/17 16:19> Labs from last 24 hours
--- NOTE | 2017-06-24 09:03 | P.DS_ITS ---
General - General Admission date: 06/22/17 <Allen Gamez - 06/24/17 09:04> Discharge date: 06/24/17 <Sheila Ríos - 06/25/17 16:19> HPI HPI: Ms Guerrier is a 62 year old female with a history of COPD, anemia, seizure disorder, HTN, alcohol related pancreatitis, GERD, Depression and anxiety, Hyperlipidemia, tobacco disorder, and PAD who presented to [facility] ER after experiencing a lengthy seizure at home when going to the bathroom. Seizure was observed by her partner. EMS administered IV and IM Versed. She did have loss of bladder and bowel control. First thing she remembers is the ER. She denies having any chest discomfort and SOB. She states that she has been cutting back on her Keppra. Last hospitalization was in October of last year at [facility] in [facility] for seizures. Her family MD is Dr. Hughes who she sees q 3 months. She was told at this last hospitalization that she was having mini strokes. This AM she continues to deny CP and SOB. Her only complaint is a headache. She denies fever, cough, ST and RN. She does have chronic sinusitis. Troponin I was elevated with EKG showing poor R wave progression. She was admitted with a cardiology consult. <Allen Gamez - 06/24/17 09:04> Objective Vital signs: Temp Pulse Resp BP Pulse Ox 98.3 F 62 18 134/55 96 06/24/17 08:00 06/24/17 08:00 06/24/17 08:00 06/24/17 08:00 06/24/17 08:00 <Sheila Ríos - 06/25/17 16:19> Temp Pulse Resp BP Pulse Ox 98.3 F 62 18 134/55 96 06/24/17 08:00 06/24/17 08:00 06/24/17 08:00 06/24/17 08:00 06/24/17 08:00 <Allen Gamez - 06/24/17 09:04> Narrative: - Constitutional no acute distress - *Routine HEENT Exam Head: Present: normocephalic, atraumatic Eye: Present: EOMI, PERRL, normal accommodation. Absent: conjunctival icterus, scleral injection ENT: Present: mucous membranes moist - *Routine Neck Exam Present: supple, full ROM. Absent: carotid bruit, lymphadenopathy, thyromegaly - *Routine Respiratory Exam Absent: respiratory distress Comments: bilateral rhonchi - *Routine Cardiovascular Exam Present: RRR - *Routine Abdominal Exam Present: soft, normoactive bowel sounds. Absent: tenderness, distended, guarding Comments: has rao catheter - *Routine Exam Comments: has rao catheter - *Routine Extremities Exam Present: full ROM. Absent: edema, calf tenderness - *Routine Neurological Exam Present: alert, oriented X3 <Sheila Ríos - 06/25/17 16:19> Hospital Course Hospital Course: Patient was seen by cardiology and a heart cath was ordered. Her CXR showed bilateral pneumonia and she was started on Duonebs for her pneumonia along with Levaquin. She had an echo showing a mildly enlarged left atrium, normal left ventricular size, a visually estimated ejection fraction 55% with no obvious regional wall motion abnormality, and mild aortic, moderate mitral and mild tricuspid regurgitation. Her heart cath showed moderate nonflow limiting coronary artery disease with hypertensive tortuous vessels accompanied by a hyperdynamic ejection fraction and moderate to severely elevated LVEDP all consistent with moderate to severe hypertensive heart disease. Cardiology recommended medical management. She was able to be weaned off of her oxygen, denied any pain, and was anxious to go home. She was stable to be discharged on Levaquin. Her Amlodipine was stopped and her Ve
[2017-06-25 20:09] LABS: Levetiracetam (Keppra) None Detected ug/mL (10.0-40.0)
== END 2017-06-24 11:29 | disposition home or self-care (01) | DRG 280 ==
LOC: ER 03:34 → ICU 06:23 → 2ND 06:33 → ICU 06-23 11:03
PROVIDERS: Internal Medicine; Admitting Provider Family Medicine; Emergency Provider Emergency Medicine; PCP Family Medicine Addiction Medicine; Visit Provider Family Medicine
PROC: 4A023N7 Measurement of Cardiac Sampling and Pressure, Left Heart, Percutaneous Approach (ICD-10-PCS; principal; 2017-06-22 12:45)
DX: I21.4 Non-ST elevation (NSTEMI) myocardial infarction (principal); J18.9 Pneumonia, unspecified organism; Z72.0 Tobacco use; J44.9 Chronic obstructive pulmonary disease, unspecified; I10 Essential (primary) hypertension; G40.909 Epilepsy, unspecified, not intractable, without status epilepticus
CPT/HCPCS: 70450; 71045; 71046; 80048; 80053; 80061; 80177; 80305; 81001; 82550; 82553; 84484; 85025; 87040; 87070; 87205; 93005; 93041; 93306; 93458; 94640; 94760; 94761; 96365; 96375; 99152; 99285; C1725; C1769; J1644; J1956; Q9967